=== PATIENT | female | born 1980 | race American Indian/Alaskan Native ===

== ENCOUNTER 2020-07-25 09:09 | Outpatient (CLI) | payer OTHER ==
--- NOTE | 2020-07-25 10:06 | XRay Report ---
CHEST 1 VIEW INDICATION: ASTHMA,KIDNEY PROBLEMS. COMPARISON: None FINDINGS: SUPPORT DEVICES: None. HEART: Within normal limits. LUNGS/PLEURA: No acute air space or interstitial disease. ADDITIONAL FINDINGS: None. IMPRESSION: 1. No acute findings. Signer Name: Giuseppe Lucia MD Signed: 07/25/2020 10:02 AM Workstation Name: [id number]
== END 2020-07-25 09:10 | disposition home or self-care (01) ==
LOC: XRAY 09:09
PROVIDERS: ATTEND Internal Medicine
DX: I10 Essential (primary) hypertension (principal); J45.909 Unspecified asthma, uncomplicated; N28.9 Disorder of kidney and ureter, unspecified
CPT/HCPCS: 71045